=== PATIENT | female | born 1985 | race Asian ===

== ENCOUNTER 2018-12-13 08:54 | Emergency (ER) | payer OTHER ==
[2018-12-13 09:12] VITALS: BP 102/72
--- NOTE | 2018-12-13 12:51 | UC ---
Skin Complaint HPI - HPI Summary HPI Summary: WOKE UP THIS MORNING AND NOTICED 2 SMALL RED BAKER ON THE BACK OF HER RIGHT HAND. STATES NOT SURE IF THEY WERE THERE YESTERDAY OR NOT. NOT TENDER. WONDERS IF SHE WAS BITTEN BY A MOUSE AND IS HERE ASKING ABOUT RABIES. ALSO STATES HER RIGHT SHOULDER HAS BEEN MILDLY PAINFUL FOR FOR A DAY OR SO. NO INJURY. NO NUMBNESS/TINGLING/WEAKNESS. - History of Current Complaint Chief Complaint: UCSkin Time Seen by Provider: 12/13/18 09:13 Stated Complaint: INSECT BITE Hx Obtained From: Patient Onset/Duration: Sudden Onset, Lasting Hours, Still Present Timing: Constant Onset Severity: Mild Current Severity: Mild Pain Intensity: 0 Pain Scale Used: 0-10 Numeric Aggravating Factor(s): Nothing Alleviating Factor(s): Nothing Associated Signs & Symptoms: Negative: Fever, Rash, Drainage, Tenderness, Red Streaks - Allergy/Home Medications Allergies/Adverse Reactions: Allergies Allergy/AdvReac Type Severity Reaction Status Date / Time No Known Allergies Allergy Verified 12/13/18 09:12 PMH/Surg Hx/FS Hx/Imm Hx Previously Healthy: Yes - Surgical History Surgical History: None - Family History Known Family History: Positive: Non-Contributory - Social History Alcohol Use: Occasionally Substance Use Type: None Smoking Status (MU): Never Smoked Tobacco Review of Systems All Other Systems Reviewed And Are Negative: Yes Constitutional: Positive: Negative Skin: Positive: Other - ABRASION BACK OF RIGHT HAND Respiratory: Positive: Negative Cardiovascular: Positive: Negative Gastrointestinal: Positive: Negative Musculoskeletal: Positive: Arthralgia. Negative: Decreased ROM Physical Exam Triage Information Reviewed: Yes Appearance: Well-Appearing, No Pain Distress, Well-Nourished Vital Signs: Initial Vital Signs Temp 98.6 F 12/13/18 09:06 Pulse 72 12/13/18 09:06 Resp 18 12/13/18 09:06 BP 102/72 12/13/18 09:06 Pulse Ox 98 12/13/18 09:06 Vital Signs Reviewed: Yes Eyes: Positive: Conjunctiva Clear ENT: Positive: Hearing grossly normal Neck: Positive: Supple Respiratory: Positive: No respiratory distress, No accessory muscle use Cardiovascular: Positive: Pulses Normal Abdomen Description: Positive: Soft Musculoskeletal: Positive: ROM Intact, No Edema, Other: - NO TENDERNESS RIGHT SHOULDER. Neurological: Positive: Alert, Muscle Tone Normal Psychological: Positive: Age Appropriate Behavior Skin: Positive: Other - 2MM SPFL ABRASIONS X2 BACK OF RIGHT HAND BY ABOUT 1CM Course/Dx - Course Course Of Treatment: DISCUSSED WITH PATIENT THAT RODENTS SUCH JANET DO NOT CARRY RABIES AND THAT THERE IS NO WAY TO KNOW WHAT CAUSED THE ABRASION ON THE BACK OF HER HAND. ADVISED THAT SHE IS EXTREMELY UNLIKELY TO HAVE CONTRACTED RABIES BUT THAT IT IS THE HEALTH DEPARTMENT WHO NEEDS TO MAKE THE DECISION ABOUT RABIES POSTEXPOSURE PROPHYLAXIS. SHE IS TO CALL THEM TODAY FOR FURTHER GUIDANCE ON THIS MATTER. HER SHOULDER PAIN SEEMS UNRELATED AND IS LIKELY MUSCULOSKELETAL IN NATURE. NO INDICATION FOR X-RAYS TODAY. PATIENT HAS DECLINED A SLING WHICH I THINK IS REASONABLE. ADVISED OTC MEDICATIONS FOR DISCOMFORT AND TO FOLLOW-UP WITH HER PCP IF SHE IS NOT IMPROVING OVER THE NEXT COUPLE OF WEEKS. - Diagnoses Provider Diagnosis: Abrasion of right hand, Right shoulder pain Discharge ED - Sign-Out/Discharge Documenting (check all that apply): Patient Departure All imaging exams completed and their final reports reviewed: No Studies - Discharge Plan Condition: Stable Disposition: HOME Prescriptions: Mupirocin 2% OINT* [Bactroban 2 % Oint*] 1 applic TOPICAL BID #1 tube Patient Education Materials: Abrasion (ED), Shoulder Pain (ED) Referrals: [facility] [Outside] - If Needed Additional Instructions: The superficial abrasion on the back of your hand is unlikely related to your shoulder pain. I cannot say with certainty that it is not from an animal however I think this is extremely low probability. Based on your history you almost certainly will not qualify for rabies post exposure prophylaxis. If you are concerned about rabies and would like to talk about this further you need to call the [facility]. They will assess you for eligibility for rabies post exposure prophylaxis. Use the antibiotic ointment a couple of times a day until it has resolved. Seek follow-up if you develop spreading redness of the skin, purulent drainage, fever, increasing pain or any other concerning symptoms. Your shoulder pain seems musculoskeletal in nature. Take OTC analgesics as needed for discomfort. Avoid activities such as heavy lifting and overhead reaching until your symptoms are improved. If you are not noticing any improvement over the next 1-2 weeks follow-up with orthopedics. You May benefit from imaging at that time. BE sure to go through slow range of motion exercises to prevent stiffening up and making the discomfort worse. IBUPROFEN MAX DOSE: 600MG (3 TABS) EVERY 6 HRS OR 800MG (4 TABS) EVERY 8 HRS OR NAPROXEN MAX DOSE: 440MG (2 TABS) EVERY 12 HRS TYLENOL MAX DOSE: 1000MG (2 EXTRA STRENGTH TABS) EVERY 8 HRS OR 650MG (2 REGULAR TABS) EVERY 6 HRS CALL THE NUMBER BELOW FOR ASSISTANCE IN ESTABLISHING WITH A PCP An additional resource available to assist in finding the appropriate physician for your health care needs is the [facility] ([facility]). You may contact them by calling [phone]. - Billing Disposition and Condition Condition: STABLE Disposition: Home
== END 2018-12-13 10:10 | disposition home or self-care (01) ==
LOC: UCEAST 08:54
DX: S60.511A Abrasion of right hand, initial encounter (principal); X58.XXXA Exposure to other specified factors, initial encounter; Y92.9 Unspecified place or not applicable; M25.511 Pain in right shoulder
CPT/HCPCS: 99202; G0463